=== PATIENT | male | born 1975 | race Two or more races ===

== ENCOUNTER 2018-02-06 16:27 | Emergency (ER) | payer OTHER ==
[~2018-02-06] VITALS: Ht 180.3 cm; Wt 95.3 kg
[2018-02-06 16:30] VITALS: BP 136/90
== END 2018-02-06 17:29 | disposition home or self-care (01) ==
LOC: ER 16:30
DX: S13.4XXA Sprain of ligaments of cervical spine, initial encounter (principal); S09.8XXA Other specified injuries of head, initial encounter; I10 Essential (primary) hypertension; V49.49XA Driver injured in collision with other motor vehicles in traffic accident, initial encounter; Y93.89 Activity, other specified; Y92.413 State road as the place of occurrence of the external cause; Y99.8 Other external cause status
CPT/HCPCS: A4606; Z7610